=== PATIENT | male | born 1965 | race Caucasian/White ===

== ENCOUNTER 2017-01-12 20:53 | Emergency (ER) | payer OTHER ==
[~2017-01-12 20:53] MED LIST: ASPIR 8181 MG PO; ATORVASTATIN CA40 M1 PO; CARVEDILOL3.125 M1 PO; EFFIENT10 M1 PO; NITROSTAT0.4 MG SL; QVAR0.08 MG/Ac IH; SPIRONOLACTONE25 MG PO; VENTAVIS IH; ZESTRIL5 MG PO
[2017-01-12 22:24] LABS: BASOPHIL % 0.9 % (0-2); PLATELET COUNT 174 x10^3mcL (130-400); RED CELL DISTRIBUTION WIDTH 14.3 % (11.5-14.5)
[2017-01-12 22:36] LABS: CALCIUM 10.2 mg/dL (8.5-10.1); CARBON DIOXIDE 28.7 mmol/L (21-32); CHLORIDE SERUM 102 mmol/L (98-107); CREATININE SERUM 1.3 mg/dL (0.7-1.3); GFR1 > 60 mL/min; GLUCOSE SERUM 138 mg/dL (74-106); POTASSIUM SERUM 4.4 mmol/L (3.5-5.1); SODIUM SERUM 139 mmol/L (136-145)
[2017-01-12 22:41] LABS: ALBUMIN 4.1 g/dL (3.4-5.0); ALKALINE PHOSPHATASE 97 U/L (46-116); ALT/SGPT 25 U/L (16-63); AST/SGOT 20 U/L (15-37); BILIRUBIN TOTAL 0.9 mg/dL (0.20-1.00)
[2017-01-13 01:06] VITALS: BP 126/65
== END 2017-01-13 01:06 | disposition home or self-care (01) ==
LOC: ED 20:53
PROVIDERS: Emergency Medicine
DX: N23 Unspecified renal colic (principal); I25.10 Atherosclerotic heart disease of native coronary artery without angina pectoris; Z88.0 Allergy status to penicillin; Z79.82 Long term (current) use of aspirin; Z79.899 Other long term (current) drug therapy
CPT/HCPCS: J1170; J1885; J2405; J7030